=== PATIENT | female | born 1955 | race Caucasian/White ===

== ENCOUNTER 2020-04-10 14:54 | Emergency (ER) | payer SELFPAY ==
[~2020-04-10] VITALS: Ht 160 cm; Wt 74.4 kg
[2020-04-10] MEDS ORDERED: LISINOPRIL 10 MG TABLET PO ONE (16:00)
[2020-04-10] MEDS ORDERED: LISINOPRIL 10 MG TABLET ONE (16:09)
[2020-04-10 16:26] LABS: BASOPHILS % (AUTO) 1 % (0-1); EOSINOPHILS % (AUTO) 2 % (1-7); LYMPHOCYTES % (AUTO) 23 % (22-44); MEAN CORPUSCULAR HEMOGLOBIN 29.9 pg (27.0-34.8); MEAN CORPUSCULAR HGB CONC 33.4 g/dL (32.4-35.8); MEAN PLATELET VOLUME 7.7 fL (7.4-10.4); MONOCYTES % (AUTO) 9 % (2-9); NEUTROPHILS % (AUTO) 65 % (42-75); PLATELET COUNT 322 x10^3/uL (130-400); RED BLOOD COUNT 4.84 x10^6/uL (3.82-5.3); RED CELL DISTRIBUTION WIDTH 13.8 % (9.6-15.2)
[2020-04-10 16:31] LABS: MD NO
[2020-04-10 16:34] LABS: ALBUMIN 4.1 g/dL (3.4-5.0); ANION GAP 3 mmol/L (5-15); CALCIUM 9.3 mg/dL (8.5-10.1); CHLORIDE 109 mmol/L (98-107); CREATININE 0.69 mg/dL (0.55-1.02)
[2020-04-10 17:36] VITALS: BP 154/74
== END 2020-04-10 17:38 | disposition home or self-care (01) ==
LOC: ED 16:49
DX: I10 Essential (primary) hypertension (principal); R51.9 Headache, unspecified
CPT/HCPCS: 36415; 80048; 82040; 85025; 99283

== ENCOUNTER 2020-07-27 10:18 | Inpatient (IN) | payer BC, MEDICAID ==
[~2020-07-27] VITALS: Ht 160 cm; Wt 71.5 kg
--- NOTE | 2020-07-27 10:47 | NUR ---
chest pain intermittent worse on breathing, reproducible, over L breast. near syncopal yest, pain across back and down arms, weakness. after eating lunch. nsr 70s. started lisinopril in may. takes meds/bp regularly. trudi in room for eval. son at bedside. as
--- NOTE | 2020-07-27 11:25 | NUR ---
HOLD HYDRALAZINE BP WNL.
[2020-07-27] MEDS ORDERED: hydrALAzine 20 MG/ML, 1ML IV ONE (11:30)
[2020-07-27 11:33] LABS: BASOPHILS % (AUTO) 2 % (0-1); EOSINOPHILS % (AUTO) 2 % (1-7); LYMPHOCYTES % (AUTO) 32 % (22-44); MEAN CORPUSCULAR HEMOGLOBIN 29.8 pg (27.0-34.8); MEAN CORPUSCULAR HGB CONC 33.4 g/dL (32.4-35.8); MEAN PLATELET VOLUME 7.9 fL (7.4-10.4); MONOCYTES % (AUTO) 8 % (2-9); NEUTROPHILS % (AUTO) 56 % (42-75); PLATELET COUNT 321 x10^3/uL (130-400); RED BLOOD COUNT 4.96 x10^6/uL (3.82-5.3); RED CELL DISTRIBUTION WIDTH 13.9 % (9.6-15.2)
[2020-07-27 11:36] LABS: ALBUMIN 4.4 g/dL (3.4-5.0); ANION GAP 6 mmol/L (5-15); CHLORIDE 109 mmol/L (98-107)
[2020-07-27 11:42] LABS: CREATININE 0.72 mg/dL (0.55-1.02); TROPONIN I < 0.015 ng/mL (0.000-0.045)
[2020-07-27 11:43] LABS: MD NO
[2020-07-27] MEDS ORDERED: OMNIPAQUE 350 MG/ML, 75ML BOTTLE ONE (12:00)
--- NOTE | 2020-07-27 12:11 | NUR ---
to and from ct. as
[2020-07-27] MEDS ORDERED: LISI2.5T PO (12:12)
--- NOTE | 2020-07-27 12:25 | NUR ---
CT SHOWS CANCER, MD AWARE.
--- NOTE | 2020-07-27 13:38 | NUR ---
PT BEING ADMITTED, ADMITTING MD WAS IN ROOM.
[2020-07-27] MEDS ORDERED: hydrALAzine 20 MG/ML, 1ML ONE (13:46)
--- NOTE | 2020-07-27 13:47 | NUR ---
ASSUMED CARE OF PATIENT. SPOKE WITH THE HOSPITALIST. PROVIDER WANTS HYDRALAZINE GIVEN AT THIS TIME. [employer]. NSR NOTED. CALL LIGHT IN PLACE. WILL CONTINUE TO MONITOR.
--- NOTE | 2020-07-27 13:57 | NUR ---
report to gretchen cisneros. as
[2020-07-27] MEDS ORDERED: hydrALAzine 20 MG/ML, 1ML IVPush PRN (14:00)
[2020-07-27] MEDS ORDERED: LABETALOL 5MG/ML, 20ML IVPush ONE (14:00)
[2020-07-27] MEDS ORDERED: POLYETHYLENE GLYCOL 17 GM PACKET PO PRN (14:00)
[2020-07-27] MEDS ORDERED: PROMETHAZINE 25 MG/ML, 1ML IM PRN (14:00)
[2020-07-27] MEDS ORDERED: morphine SULFATE 10 MG/ML, 1ML IVPush PRN (14:00)
[2020-07-27] MEDS ORDERED: HYDROcodone/APAP 5/325 TABLET PO PRN (14:00)
[2020-07-27] MEDS ORDERED: ONDANSETRON 2MG/ML, 2ML IVPush PRN (14:00)
[2020-07-27] MEDS ORDERED: MELATONIN 5 MG TABLET PO PRN (14:00)
[2020-07-27 14:19] LABS: TROPONIN I < 0.015 ng/mL (0.000-0.045)
[2020-07-27 14:26] VITALS: BP 155/75
[2020-07-27 18:45] VITALS: BP 109/69
[2020-07-27 19:28] LABS: TROPONIN I < 0.015 ng/mL (0.000-0.045)
[2020-07-27] MEDS: ACETAMINOPHEN 325 MG TABLET PO PRN (20:55)
[2020-07-28 00:18] VITALS: BP 99/62
[2020-07-28 05:17] LABS: BASOPHILS % (AUTO) 1 % (0-1); EOSINOPHILS % (AUTO) 1 % (1-7); LYMPHOCYTES % (AUTO) 22 % (22-44); MD NO; MEAN CORPUSCULAR HEMOGLOBIN 29.9 pg (27.0-34.8); MEAN CORPUSCULAR HGB CONC 33.3 g/dL (32.4-35.8); MEAN PLATELET VOLUME 8.2 fL (7.4-10.4); MONOCYTES % (AUTO) 9 % (2-9); NEUTROPHILS % (AUTO) 67 % (42-75); PLATELET COUNT 305 x10^3/uL (130-400); RED BLOOD COUNT 4.67 x10^6/uL (3.82-5.3); RED CELL DISTRIBUTION WIDTH 14.2 % (9.6-15.2)
[2020-07-28 05:27] LABS: CHLORIDE 110 mmol/L (98-107)
[2020-07-28 05:32] LABS: ALANINE AMINOTRANSFERASE 26 U/L (12-78); ALKALINE PHOSPHATASE 64 U/L (45-117); ANION GAP 8 mmol/L (5-15); BILIRUBIN,TOTAL 0.4 mg/dL (0.2-1.0); CREATININE 0.64 mg/dL (0.55-1.02); TOTAL PROTEIN 7.2 g/dL (6.4-8.2)
[2020-07-28 06:51] VITALS: BP 123/75
[2020-07-28] MEDS: LISINOPRIL 40 MG TABLET PO SCH (09:37)
[2020-07-28] MEDS: ACETAMINOPHEN 325 MG TABLET PO PRN (09:43)
[2020-07-28] MEDS ORDERED: MIDAZOLAM 1 MG/ML, 5ML ONE (11:11)
[2020-07-28] MEDS ORDERED: NALOXONE 1 MG/ML, 2ML ONE (11:11)
[2020-07-28] MEDS ORDERED: FENTANYL PF 100 MCG/2ML ONE (11:11)
[2020-07-28] MEDS ORDERED: FLUMAZENIL 0.1 MG/1 ML, 5ML ONE (11:11)
[2020-07-28] MEDS ORDERED: LIDOCAINE-MPF 1%, 5ML ONE (11:15)
[2020-07-28] MEDS ORDERED: OMNIPAQUE 350 MG/ML, 100ML BOTTLE ONE (12:16)
[2020-07-28 13:58] VITALS: BP 132/85
[2020-07-28 14:05] VITALS: BP 119/74
[2020-07-28 19:12] VITALS: BP 112/70
[2020-07-28 20:51] VITALS: BP 130/79
[2020-07-29 01:04] VITALS: BP 127/77
[2020-07-29] MEDS: ACETAMINOPHEN 325 MG TABLET PO PRN (01:19)
[2020-07-29 04:56] LABS: BASOPHILS % (AUTO) 1 % (0-1); EOSINOPHILS % (AUTO) 2 % (1-7); LYMPHOCYTES % (AUTO) 22 % (22-44); MD NO; MEAN CORPUSCULAR HEMOGLOBIN 30.1 pg (27.0-34.8); MEAN CORPUSCULAR HGB CONC 33.3 g/dL (32.4-35.8); MEAN PLATELET VOLUME 7.8 fL (7.4-10.4); MONOCYTES % (AUTO) 10 % (2-9); NEUTROPHILS % (AUTO) 65 % (42-75); PLATELET COUNT 288 x10^3/uL (130-400); RED CELL DISTRIBUTION WIDTH 14.2 % (9.6-15.2)
[2020-07-29 05:07] LABS: CHLORIDE 112 mmol/L (98-107)
[2020-07-29 05:14] LABS: ALANINE AMINOTRANSFERASE 24 U/L (12-78); ALBUMIN 3.7 g/dL (3.4-5.0); ALKALINE PHOSPHATASE 59 U/L (45-117); ANION GAP 8 mmol/L (5-15); BILIRUBIN,TOTAL 0.3 mg/dL (0.2-1.0); CALCIUM 8.4 mg/dL (8.5-10.1); CREATININE 0.62 mg/dL (0.55-1.02); TOTAL PROTEIN 6.7 g/dL (6.4-8.2)
[2020-07-29 06:43] VITALS: BP 136/85
[2020-07-29 09:32] VITALS: BP 122/83
[2020-07-29] MEDS: LISINOPRIL 40 MG TABLET PO SCH (09:33)
[2020-07-29 12:35] VITALS: BP 124/73
[2020-07-29 19:45] VITALS: BP 126/81
[2020-07-29 21:05] VITALS: BP 132/81
[2020-07-30 00:11] VITALS: BP 122/74
[2020-07-30 04:53] LABS: BASOPHILS % (AUTO) 2 % (0-1); EOSINOPHILS % (AUTO) 4 % (1-7); LYMPHOCYTES % (AUTO) 30 % (22-44); MEAN CORPUSCULAR HEMOGLOBIN 30.1 pg (27.0-34.8); MEAN CORPUSCULAR HGB CONC 33.7 g/dL (32.4-35.8); MEAN PLATELET VOLUME 7.9 fL (7.4-10.4); MONOCYTES % (AUTO) 11 % (2-9); NEUTROPHILS % (AUTO) 53 % (42-75); PLATELET COUNT 280 x10^3/uL (130-400); RED CELL DISTRIBUTION WIDTH 14.3 % (9.6-15.2)
[2020-07-30 04:55] LABS: MD NO
[2020-07-30 05:09] LABS: ALBUMIN 3.7 g/dL (3.4-5.0); ANION GAP 5 mmol/L (5-15); CALCIUM 8.5 mg/dL (8.5-10.1); CHLORIDE 112 mmol/L (98-107)
[2020-07-30 05:13] LABS: ALANINE AMINOTRANSFERASE 23 U/L (12-78); ALKALINE PHOSPHATASE 58 U/L (45-117); BILIRUBIN,TOTAL 0.4 mg/dL (0.2-1.0); TOTAL PROTEIN 6.8 g/dL (6.4-8.2)
[2020-07-30 06:53] VITALS: BP 146/85
[2020-07-30] MEDS: LISINOPRIL 40 MG TABLET PO SCH (08:08)
[2020-07-30 12:20] VITALS: BP 121/81
[2020-07-30] MEDS ORDERED: ATOR20TA37 PO (12:24)
[2020-07-30] MEDS ORDERED: LISI40TA9 PO (12:24)
[2020-07-30] MEDS ORDERED: HYDR-3343 PO (12:24)
== END 2020-07-30 13:34 | disposition home or self-care (01) | DRG 168 ==
LOC: SUATTDRO 13:09 → ED 13:13 → EDIP 14:06 → 5SO 14:26 → DCLOUNGE 07-30 13:07
PROVIDERS: ADMIT Hospitalist; ATTEND Hospitalist
PROC: 0WBC3ZX Excision of Mediastinum, Percutaneous Approach, Diagnostic (ICD-10-PCS; principal; 2020-07-28)
PROC: 0GBG3ZX Excision of Left Thyroid Gland Lobe, Percutaneous Approach, Diagnostic (ICD-10-PCS; 2020-07-28)
DX: J98.59 Other diseases of mediastinum, not elsewhere classified (principal); E04.1 Nontoxic single thyroid nodule; I16.0 Hypertensive urgency; I10 Essential (primary) hypertension; Z82.49 Family history of ischemic heart disease and other diseases of the circulatory system
CPT/HCPCS: 32408; 36415; 60100; 71045; 71275; 74177; 76942; 77012; 80048; 80053; 82040; 83036; 83735; 83880; 84100; 84443; 84484; 85025; 88112; 88305; 93005; 93306; 99156; 99157; G0378; J2250; J3010; Q9967; J0360; J2310

== ENCOUNTER → 2020-09-18 | Outpatient (CLI) | payer BC, MEDICAID ==
[~2020-09-18] MED LIST: ATOR20TA37 PO; HYDR-3343 PO; LISI2.5T PO; LISI40TA9 PO; OMNIPAQUE 350 MG/ML, 75ML BOTTLE ONE
== END | disposition home or self-care (01) ==
LOC: CFH 07:52
PROVIDERS: ATTEND Surgery
DX: J98.59 Other diseases of mediastinum, not elsewhere classified (principal); E07.89 Other specified disorders of thyroid
CPT/HCPCS: 71260; Q9967

== ENCOUNTER 2020-11-04 09:50 | Outpatient (CLI) | payer MEDICAID ==
[~2020-11-04 09:50] MED LIST changes: -LISI2.5T PO; +LISI2.5T12 PO; -OMNIPAQUE 350 MG/ML, 75ML BOTTLE ONE
== END 2020-11-04 23:59 | disposition home or self-care (01) ==
LOC: CARD 09:50
PROVIDERS: ATTEND Family Medicine
DX: Z01.810 Encounter for preprocedural cardiovascular examination (principal); R22.2 Localized swelling, mass and lump, trunk; I10 Essential (primary) hypertension
CPT/HCPCS: 93017; 93350

== ENCOUNTER 2020-11-21 22:33 | Emergency (ER) | payer MEDICAID ==
[~2020-11-21] VITALS: Ht 160 cm; Wt 74.0 kg
--- NOTE | 2020-11-21 22:55 | NUR ---
PT PRESENTS TO ER FOR HIGH BLOOD PRESSURE, SOB, AND CHEST PAIN, PT STATES BLOOD PRESSURE HAS BEEN HIGH SINCE TODAY, PT EXPERIENCING A HEADACHE IN THE BACK OF HER HEAD, PT STATES THE ACEVEDO COMES AND GOES
[2020-11-21] MEDS ORDERED: LABETALOL 5MG/ML, 20ML IVPush ONE (23:30)
[2020-11-22 00:10] LABS: BASOPHILS % (AUTO) 1 % (0-1); EOSINOPHILS % (AUTO) 6 % (1-7); LYMPHOCYTES % (AUTO) 22 % (22-44); MEAN CORPUSCULAR HEMOGLOBIN 29.8 pg (27.0-34.8); MEAN CORPUSCULAR HGB CONC 33.4 g/dL (32.4-35.8); MEAN PLATELET VOLUME 6.9 fL (7.4-10.4); MONOCYTES % (AUTO) 9 % (2-9); NEUTROPHILS % (AUTO) 61 % (42-75); PLATELET COUNT 565 x10^3/uL (130-400); RED BLOOD COUNT 3.96 x10^6/uL (3.82-5.3); RED CELL DISTRIBUTION WIDTH 13.9 % (9.6-15.2)
[2020-11-22] MEDS ORDERED: LABETALOL 5MG/ML, 20ML ONE (00:15)
[2020-11-22 00:22] LABS: ANION GAP 6 mmol/L (5-15); CALCIUM 9.6 mg/dL (8.5-10.1); CHLORIDE 106 mmol/L (98-107)
[2020-11-22 00:23] LABS: ALBUMIN 3.6 g/dL (3.4-5.0)
[2020-11-22 00:27] LABS: TROPONIN I < 0.015 ng/mL (0.000-0.045)
--- NOTE | 2020-11-22 00:41 | NUR ---
PT LAYING IN BED, A/OX3, ALL NEEDS IN REACH, CALL LIGHT IN REACH, NAD AT THIS TIME, BLOOD PRESSURE STARTING TO COME DOWN AFTER MEDICATION ADMINISTRATION
--- NOTE | 2020-11-22 01:05 | NUR ---
PT LAYING IN BED, A/OX3, ALL NEEDS IN REACH, CALL LIGHT IN REACH, NAD AT THIS TIME, VSS
[2020-11-22 01:26] VITALS: BP 162/80
== END 2020-11-22 01:28 | disposition home or self-care (01) ==
LOC: ED 23:59
DX: I10 Essential (primary) hypertension (principal); R07.89 Other chest pain
CPT/HCPCS: 36415; 80048; 82040; 84484; 85025; 93005; 96374; 99285